=== PATIENT | male | born 1960 | race Caucasian/White ===

== ENCOUNTER 2023-11-08 08:21 | Emergency (ER) | payer OTHER, SELFPAY ==
[2023-11-08 08:22] VITALS: BP 160/90
[2023-11-08] MEDS: VALIUM INJECTION 5 MG IV (10:19)
[2023-11-08] MEDS: DECADRON 10 MG IV (10:19)
[2023-11-08] MEDS: TORADOL 15 MG IV (10:19)
--- NOTE | 2023-11-08 11:36 | ED.MUSCINJ ---
HPI-Injury
General
Chief Complaint: Musculo-Skeletal Complaint
Source: patient
Exam Limitations: none
Time Seen by Provider: 11/08/23 09:23
History of Present Illness-Injury
Initial Injury comments:
63-year-old male presents complaining of worsening pain to left side of neck that radiates down the left arm. This has been progressive over a month. He has seen his family doctor. He was on a prednisone course for about 5 days. He has been
physical therapy and use Voltaren gel and lidocaine patches. He notes pain that radiates from his neck down the posterior aspect of his arm into 2 of his fingers on his left hand. No bowel or bladder dysfunction. No fever. No associated
headache. Recently they prescribed tramadol which did not help. No other complaints at this time
Past History
Past History
ED Past Medical History: None
ED Past Surgical History: Other
Social History
Tobacco: Non-smoker
Personal:
Employment: Employed
Family History
Family History: Negative Early CAD or CAD
Phy Exam
Physical Exam
Physical Exam:
General: Uncomfortable male no acute respiratory distress
HEENT: Normocephalic atraumatic
Heart: Regular rate and rhythm no murmurs
Lungs: Clear no wheeze
Musculoskeletal exam: Tenderness over the superior aspect of the shoulder and posterior arm. He is also slightly tender over the left paraspinous area of the cervical spine. He has limited extension or lateral bending of his cervical spine.
Neurologic: Good sensation and strength to the upper extremities
Vascular: 2+ radial pulse left
Injury Course
Orders/Labs/Results
Orders:
Orders
11/08/23 09:52
Dexamethasone Sod Phosphate [Decadron] 10 mg IV NOW STA
Ketorolac [Toradol] 15 mg IV NOW STA
diazePAM [Valium Injection] 5 mg IV NOW STA
MDM/Problems Addressed
Differential Diagnosis Includes:
Neck pain with radiation down the arm. Likely cervical radiculopathy. No fever to suggest infectious source. This is progressive over a month. Do not suspect fracture. No concerning neurologic findings to suggest cauda equina or epidural abscess
Considered x-rays however no traumatic injury not helpful at this time. Did treat his symptoms with Toradol Valium and Decadron IV and he is feeling significantly improved. Will send home with gabapentin and Valium. He has an appointment for an
MRI this Thursday. Referred to pain management further evaluation
*Critical Care Note
Total Time (30-74mins, 75-104mins- exclusive of procedures): Not Applicable
ED Attending Note
-
Portions of this chart may have been created with voice recognition software.� Occasional wrong word or��sound alike� substitutions may have occurred due to the inherent limitations of voice recognition software.
Discharge Plan
Departure
Patient Disposition: Home (Routine Discharge)
Date of Disposition: 11/08/23
Time of Disposition: 11:40
Patient with high blood pressure during this ER visit?: No
Discharge Problem:
Cervical radiculopathy
Instructions: Radiculopathy (DC)
Prescriptions:
New
gabapentin 300 mg capsule
300 mg PO BID Qty: 20 0RF
diazepam [Valium] 5 mg tablet
5 mg PO BID PRN (Reason: spasm) Qty: 10 0RF
Referrals:
Jorge Vieira MD [Family Provider] -
Interventions
Interventions:
*Risk Screen - Suicide Last Done: 11/08/23 10:23
*Neglect/Abuse Screening Last Done: 11/08/23 10:23
*ED COVID-19 Vaccine History Last Done: 11/08/23 10:23
ED-Musculoskeletal Assessment Last Done: 11/08/23 10:23
Discharge Date and Time
Print Language: UKRAINIAN
[2023-11-08 11:53] VITALS: BP 155/93
== END 2023-11-08 11:55 | disposition home or self-care (01) ==
LOC: EMR 08:21
PROVIDERS: EMERGENCY PHYSICIAN Emergency Medicine; FAMILY PHYSICIAN Internal Medicine
DX: M54.12 Radiculopathy, cervical region (principal)
CPT/HCPCS: 99284; 96374; 96375

== ENCOUNTER → 2023-11-10 06:35 | Outpatient (REF) | payer OTHER, SELFPAY | LOC: MRI 3T 06:35 | PROVIDERS: ATTENDING PHYSICIAN Internal Medicine | DX: S16.1XXA Strain of muscle, fascia and tendon at neck level, initial encounter (principal); M54.12 Radiculopathy, cervical region | CPT/HCPCS: 72141 ==

== ENCOUNTER 2024-04-21 06:18 | Day surgery (SDC) | payer OTHER, SELFPAY | END 2024-04-21 14:38 | disposition home or self-care (01) | LOC: GI 06:18 | PROVIDERS: ATTENDING PHYSICIAN Internal Medicine Gastroenterology | DX: Z12.11 Encounter for screening for malignant neoplasm of colon (principal); K57.30 Diverticulosis of large intestine without perforation or abscess without bleeding; K64.8 Other hemorrhoids; Z86.0100 Personal history of colon polyps, unspecified | CPT/HCPCS: 45385; 45380; 88305 ==